=== PATIENT | female | born 1955 | race Caucasian/White ===

== ENCOUNTER → 2022-03-21 08:27 | Outpatient (CLI) | payer BC, SELFPAY ==
--- NOTE | ~2022-03-21 | MR_ITS ---
EXAMINATION: MR hip LT wo con DATE: 03/21/2022 09:26 INDICATION: Left hip pain TECHNIQUE: Magnetic resonance imaging (MRI) of the left hip was performed without intravenous contra st. Sequences included full-field axial PD-weighted FS FSE and T1-weighted FSE, coronal of the pelvis with PD-weighted FS FSE, T2-weighted FSE and T1-weighted FSE, small field of view of the left hip w ith axial PD-weighted FS FSE, sagittal PD-weighted FS FSE, coronal PD-weighted FS FSE and coronal T2 weighted FSE. Additional radial T1-weighted FGR oriented orthogonal to the acetabular rim were obtai rené for evaluation of the labrum. COMPARISON: None FINDINGS: Bones/labrum/cartilage: Alignment is normal. No fracture, avascular necrosis or pathologic marrow replacing process. Mild os teoarthritis at the left hip with partial thickness cartilage loss resulting nonuniform joint space n arrowing at the posterior aspect of the joint space. Additional minimal partial-thickness cartilage l oss at the anterosuperior aspect of the joint space. Small linear fluid signal intensity tear at the chondral labral junction and base of the 12:00 position of the superolateral left acetabular labrum w hich extends 1 cm AP. Mild lumbar spondylosis. Severe left and moderate right facet osteoarthritis at L5-S1. Fluid: Symmetric physiologic amount of fluid within both hip joints. Soft tissues: Normal and symmetric muscle bulk and signal in the pelvis and visualized proximal thighs. The bilater al iliopsoas tendons are normal. There is mild tendinopathy without discrete tear at the right ischia l tuberosity origin of the right proximal hamstring tendons. Chronic avulsion of the entire left isch ial tuberosity insertion of the common biceps femoris and semitendinosus tendons which are retracted below the inferior margin of the [id number]. Chronic high-grade partial tear of the proximal semim embranosus tendon which is markedly attenuated at its ischial tuberosity origin. No surrounding edema to suggest acute injury. Although less clearly visualized on CT than MR this appears to have been pr esent dating back to CT dated 08/02/2018. The right gluteus medius and bilateral gluteus minimus tendo ns are normal. Mild tendinopathy and small partial-thickness tear at the lateral facet footplate of t he left gluteus medias tendon which measures approximately 7 mm AP and involves at least two thirds o f the thickness of the deep margin of the tendon. Superficial surface of the tendon remains intact. T here is a small amount of fluid in the underlying gluteus medius bursa. Fibroid uterus with at least 3 low signal intensity fibroids measuring up to 2.3 cm in diameter. Visualized visceral organs of the pelvis are otherwise unremarkable. No pathologically enlarged pelvic/inguinal lymphadenopathy. Posto perative changes along the anterior pelvic wall. IMPRESSION: 1. Mild left hip osteoarthritis with small tear at the base of the left superolateral acetabular labr um. 2. Mild tendinopathy and small high-grade partial tear along the lateral facet footplate of the left gluteus medius tendon with underlying mild gluteus medius bursitis. 3. Chronic partial tear at the left ischial tuberosity origin of the proximal semimembranosus tendon and complete avulsion and distal retraction of the common left biceps femoris/semitendinosus tendon. 4. Fibroid uterus. Reviewed, dictated and finalized at location A. IMPRESSION: 1. Mild left hip osteoarthritis with small tear at the base of the left superol ateral acetabular labrum. 2. Mild tendinopathy and small high-grade partial tear along the lateral facet footplate of the left gluteus medius tendon with underlying mild gluteus medius bursitis. 3. Chronic partial tear at the left isc
== END ==
PROVIDERS: PCP Internal Medicine Infectious Disease; Visit Provider Orthopaedic Surgery
DX: M70.62 Trochanteric bursitis, left hip (principal); M25.552 Pain in left hip; M16.12 Unilateral primary osteoarthritis, left hip; S73.192A Other sprain of left hip, initial encounter; S76.812A Strain of other specified muscles, fascia and tendons at thigh level, left thigh, initial encounter; D25.9 Leiomyoma of uterus, unspecified
CPT/HCPCS: 73721

== ENCOUNTER 2025-07-31 13:11 | Outpatient (CLI) | payer MEDICARE, SELFPAY ==
--- NOTE | ~2025-07-31 | DEXA_ITS ---
Bone Density Report Name: MAYELA FLORES Age: 70 Sex: Female Ethnicity: White Date of : 1955 Indication: postmenopausal; screening for osteoporosis; Referring Provider: NABIL, GRAYSON Fernandez Study: Bone densitometry was performed. Exam Date: July 31, 2025 Accession number: [id number] Bone Density: Region BMD T-score Z-score Classification AP Spine(L1-L4) 1.220 1.6 3.5 Normal Femoral Neck (Left) 0.827 -0.2 1.5 Normal Total Hip (Left) 0.934 -0.1 1.3 Normal Femoral Neck (Right) 0.802 -0.4 1.3 Normal Total Hip (Right) 0.900 -0.3 1.0 Normal Total Hip Mean 0.917 -0.2 1.2 Normal World Health Organization criteria for BMD impression classify patients as: Normal (T-score at or above -1.0), Osteopenia (T-score between -1.0 and -2.5), or Osteoporosis (T-score at or below -2.5). 10-year Fracture Risk: FRAX not reported because: All T-scores for Spine Total, Hip Total, Femoral Neck at or above -1.0 Previous Exams: -- Region Exam Age BMD T-score BMD Change BMD Change Date g/cm2 vs Baseline vs Previous -- AP Spine (L1-L4) 07/31/2025 70 1.220 1.6 -6.8%# -6.8%# 08/26/2018 63 1.309 2.4 Total Hip(Left) 07/31/2025 70 0.934 -0.1 -13.2%# -13.2%# 08/26/2018 63 1.076 1.1 Total Hip(Right) 07/31/2025 70 0.900 -0.3 -18.1%# -18.1%# 08/26/2018 63 1.098 1.3 -- *Denotes significance at 95% confidence level, LSC for AP Spine = 0.022 g/cm2, LSC for Total Hip = 0.027 g/cm2 # Denotes dissimilar scan types or analysis methods Clinical Information Provided by Patient: Has used the following medications: Vitamin D Patient maximum height was 68 Menopause Age: 49 Drinks caffeinated beverages Onset of menses at age 14 Number of children 0 Impression: The patient has normal bone mass. Unable to evaluate interval change due to the use of different scan modes. Discussion: BONE DENSITY IS ABOVE THE MINIMUM DESIRABLE LEVEL AT ALL SKELETAL SITES TESTED. This patient?s bone mineral density is above the minimum desirable level (T-score -1.0 or better) at all sites measured. The patient should follow a healthful lifestyle (good nutrition with adequate calcium and vitamin D, and appropriate weight-bearing exercise). Follow-Up: Consider repeating this study in 5 years or sooner if there is some new clinical indication. Reported by: JOLIE on 07/31/2025 1:36:00 PM. Reviewed, dictated and finalized at location A.
== END 2025-07-31 13:12 | disposition home or self-care (01) ==
LOC: MICIMG 13:14
PROVIDERS: PCP Internal Medicine Infectious Disease; Visit Provider Nurse Practitioner
DX: Z13.820 Encounter for screening for osteoporosis (principal); Z78.0 Asymptomatic menopausal state
CPT/HCPCS: 77080